=== PATIENT | male | born 1980 | race American Indian/Alaskan Native ===

== ENCOUNTER 2018-04-08 12:32 | Emergency (ER) | payer SELFPAY ==
[2018-04-08 12:48] VITALS: BP 117/73
--- NOTE | 2018-04-08 13:17 | Emergency Department Report ---
ED Fall HPI - General Chief Complaint: Fall Stated Complaint: FULL BODY PAIN Time Seen by Provider: 04/08/18 13:15 Source: patient Mode of arrival: Wheelchair - History of Present Illness Initial Comments: Patient is a 37 years old male with no significant past medical history. Patient brought to the ER for evaluation after a fall. Patient stated that he was cleaning his gutter when he slipped from the ladder and fell. Patient stated that he was found by his girlfriend. With possible loss of consciousness. Patient now is alert and oriented 3 in no acute distress. He is complaining of right lower chest pain and lower back pain. Patient is walking into the exam room with no difficulties. MD Complaint: fall -: This morning Fall From: from height (distance) When Fall Occurred: 1-3 hours [employer] Fall Witnessed: yes, by family Place Fall Occurred: work Loss of Consciousness: yes Prolonged Down Time?: no Symptoms Prior to Fall: none Location: head, chest - Related Data Allergies Allergy/AdvReac Type Severity Reaction Status Date / Time No Known Allergies Allergy Unverified 04/08/18 12:48 ED Review of Systems ROS: Stated complaint: FULL BODY PAIN Other details as noted in HPI Comment: All other systems reviewed and negative Constitutional: denies: chills, fever Respiratory: denies: cough, orthopnea, shortness of breath, SOB with exertion, SOB at rest Cardiovascular: chest pain (right lower chest pain) Gastrointestinal: denies: abdominal pain, nausea Neurological: denies: headache, weakness, numbness, paresthesias, confusion, abnormal gait ED Past Medical Hx - Past Medical History Previous Medical History?: No - Surgical History Past Surgical History?: Yes Additional Surgical History: tonsillectomy - Social History Smoking Status: Current Every Day Smoker Substance Use Type: None ED Physical Exam - General Limitations: No Limitations General appearance: alert, in no apparent distress - Head Head exam: Present: atraumatic, normocephalic, normal inspection - Eye Eye exam: Present: normal appearance, PERRL - ENT ENT exam: Present: normal exam, normal orophraynx, mucous membranes moist, normal external ear exam - Neck Neck exam: Present: normal inspection, full ROM. Absent: tenderness, meningismus, lymphadenopathy, thyromegaly - Respiratory Respiratory exam: Present: normal lung sounds bilaterally, chest wall tenderness. Absent: respiratory distress, wheezes, rales, rhonchi, stridor, accessory muscle use, decreased breath sounds, prolonged expiratory - Cardiovascular Cardiovascular Exam: Present: regular rate, normal rhythm, normal heart sounds - GI/Abdominal GI/Abdominal exam: Present: soft, normal bowel sounds. Absent: distended, tenderness, guarding, rebound, rigid, organomegaly, mass, bruit, pulsatile mass, hernia - Extremities Exam Extremities exam: Present: normal inspection, full ROM, normal capillary refill. Absent: pedal edema, calf tenderness - Back Exam Back exam: Present: normal inspection, full ROM. Absent: tenderness, CVA tenderness (R), CVA tenderness (L), muscle spasm, paraspinal tenderness, vertebral tenderness, rash noted - Neurological Exam Neurological exam: Present: alert, oriented X3, CN II-XII intact, normal gait, reflexes normal. Absent: abnormal gait, motor sensory deficit - Skin Skin exam: Present: warm, intact, normal color ED Course Vital Signs 04/08/18 04/08/18 12:44 13:40 Temperature 98.1 F Pulse Rate 74 Respiratory 18 14 Rate Blood Pressure 117/73 O2 Sat by Pulse 97 Oximetry ED Medical Decision Making - Radiology Data Radiology results: report reviewed Referring Physician: MARCY RICHARD Patient Name: CATHY ESCUDERO Date of : 1980 Sex: Male Report Date: 2018-04-08 Report Status: Finalized Findings [facility] [address] [place] [address] Cat Scan Report Signed Patient: CATHY ESCUDERO MR#: [id number] : 1980 Acct:[id number] Age/Sex: 37 / M ADM Date: 04/08/18 Loc: ED Attending Dr: Ordering Physician: KYLEE KING Date of Service: 04/08/18 Procedure(s): CT head/brain wo con Accession Number(s): [id number] cc: KYLEE KING CT HEAD WITHOUT CONTRAST: HISTORY: Loss of consciousness with fall. TECHNIQUE: Sequential 2.5mm CT images. COMPARISON: none. FINDINGS: Cerebral Parenchyma: Within normal limits. Cerebellum: Within normal limits. Brainstem: Within normal limits. Ventricles: Normal. Sella: Normal. Extra-axial spaces: Normal. Basal Cisterns: Normal. Intracranial Hemorrhage: None. Midline Shift: None. Calvarium: Normal. Sinuses: Normal. Mastoid Air Cells: Normal. Visualized Orbits: Normal. IMPRESSION: Cranial CT scan within normal limits. Transcribed By: TTR Dictated By: ANGELA MAE JR, MD Electronically Authenticated By: ANGELA MAE JR, MD Signed Date/Time: 04/08/181515 Referring Physician: MARCY RICHARD Patient Name: CATHY ESCUDERO Date of : 1980 Sex: Male Report Date: 2018-04-08 Report Status: Finalized Findings [facility] [address] [place] [address] Cat Scan Report Signed Patient: CATHY ESCUDERO MR#: [id number] : 1980 Acct:[id number] Age/Sex: 37 / M ADM Date: 04/08/18 Loc: ED Attending Dr: Ordering Physician: MARCY RICHARD Date of Service: 04/08/18 Procedure(s): CT cervical spine wo con Accession Number(s): [id number] cc: MARCY RICHARD CT SCAN OF THE CERVICAL SPINE: HISTORY: Neck pain. TECHNIQUE: Contiguous 1.25 mm axial images of the cervical spine were obtained. Sagittal and coronal reformatted images. FINDINGS: There is normal alignment of the cervical spine. The body, pedicles and posterior ligaments appear normal. No evidence of fracture or subluxation is seen. The spinal canal appears normal. The prevertebral soft tissues appear normal. IMPRESSION: Unremarkable CT of the cervical spine. No acute process is noted. Transcribed By: TTR Dictated By: ANGELA MAE JR, MD Electronically Authenticated By: ANGELA MAE JR, MD Signed Date/Time: 04/08/181515 DD/ 15 TD/TT: 04/08/181515 Referring Physician: KYLEE KING Patient Name: CATHY ESCUDERO Date of : 1980 Sex: Male Report Date: 2018-04-08 Report Status: Finalized Findings [facility] [address] [place] [address] XRay Report Signed Patient: CATHY ESCUDERO MR#: [id number] : 1980 Acct:[id number] Age/Sex: 37 / M ADM Date: 04/08/18 Loc: ED Attending Dr: Ordering Physician: KYLEE KING Date of Service: 04/08/18 Procedure(s): XR ribs UNILAT 2V RT Accession Number(s): [id number] cc: KYLEE KING Fluoro Time In Minutes: RIGHT RIBS, 3 VIEWS: History: pain. Routine views of the rib cage demonstrate normal mineralization with no significant contour abnormalities, fractures or destructive lesions. PA view of the chest demonstrates no underlying cardiopulmonary abnormalities, fluid or pneumothorax. IMPRESSION: Unremarkable right rib series. Transcribed By: TTR Dictated By: ANGELA MAE JR, MD Electronically Authenticated By: ANGELA MAE JR, MD Signed Date/Time: 04/08/18 135 DD/ 50 TD/TT: 04/08/18 135 Referring Physician: KYLEE KING Patient Name: CATHY ESCUDERO Date of : 1980 Sex: Male Report Date: 2018-04-08 Report Status: Finalized Findings [address] [address] XRay Report Signed Patient: CATHY ESCUDERO MR#: [id number] : 1980 Acct:[id number] Age/Sex: 37 / M ADM Date: 04/08/18 Loc: ED Attending Dr: Ordering Physician: KYLEE KING Date of Service: 04/08/18 Procedure(s): XR chest routine 2V Accession Number(s): [id number] cc: KYLEE KING Fluoro Time In Minutes: ROUTINE CHEST, TWO VIEWS: HISTORY: chest pain. The trachea, heart, mediastinal contour, lung dunaway and bony thorax are unremarkable. IMPRESSION: Unremarkable chest x-ray. Transcribed By: TTR Dictated By: ANGELA MAE JR, MD Electronically Authenticated By: ANGELA MAE JR, MD Signed Date/Time: 04/08/181350 DD/ 135 TD/TT: 04/08/18 135 DD/ 14 TD/TT: 04/08/181515 Critical care attestation.: If time is entered above; I have spent that time in minutes in the direct care of this critically ill patient, excluding procedure time. ED Disposition Clinical Impression: Fall, Contusion, Head injury Disposition: - TO HOME OR SELFCARE Is pt being admited?: No Condition: Stable Instructions: Minor Head Injury (ED), Contusion in Adults (ED), Fall Prevention (ED) Referrals: PRIMARY CARE, [Primary Care Provider] - 3-5 Days
--- NOTE | 2018-04-08 13:54 | XRay Report ---
ROUTINE CHEST, TWO VIEWS: HISTORY: chest pain. The trachea, heart, mediastinal contour, lung dunaway and bony thorax are unremarkable. IMPRESSION: Unremarkable chest x-ray.
--- NOTE | 2018-04-08 13:54 | XRay Report ---
RIGHT RIBS, 3 VIEWS: History: pain. Routine views of the rib cage demonstrate normal mineralization with no significant contour abnormalities, fractures or destructive lesions. PA view of the chest demonstrates no underlying cardiopulmonary abnormalities, fluid or pneumothorax. IMPRESSION: Unremarkable right rib series.
--- NOTE | 2018-04-08 15:18 | Cat Scan Report ---
CT HEAD WITHOUT CONTRAST: HISTORY: Loss of consciousness with fall. TECHNIQUE: Sequential 2.5mm CT images. COMPARISON: none. FINDINGS: Cerebral Parenchyma: Within normal limits. Cerebellum: Within normal limits. Brainstem: Within normal limits. Ventricles: Normal. Sella: Normal. Extra-axial spaces: Normal. Basal Cisterns: Normal. Intracranial Hemorrhage: None. Midline Shift: None. Calvarium: Normal. Sinuses: Normal. Mastoid Air Cells: Normal. Visualized Orbits: Normal. IMPRESSION: Cranial CT scan within normal limits.
--- NOTE | 2018-04-08 15:19 | Cat Scan Report ---
CT SCAN OF THE CERVICAL SPINE: HISTORY: Neck pain. TECHNIQUE: Contiguous 1.25 mm axial images of the cervical spine were obtained. Sagittal and coronal reformatted images. FINDINGS: There is normal alignment of the cervical spine. The body, pedicles and posterior ligaments appear normal. No evidence of fracture or subluxation is seen. The spinal canal appears normal. The prevertebral soft tissues appear normal. IMPRESSION: Unremarkable CT of the cervical spine. No acute process is noted.
== END 2018-04-08 15:58 | disposition home or self-care (01) ==
LOC: ED 12:32
DX: S00.93XA Contusion of unspecified part of head, initial encounter (principal); S30.0XXA Contusion of lower back and pelvis, initial encounter; F17.200 Nicotine dependence, unspecified, uncomplicated; Z90.89 Acquired absence of other organs; W11.XXXA Fall on and from ladder, initial encounter; Y93.89 Activity, other specified; Y92.69 Other specified industrial and construction area as the place of occurrence of the external cause; Y99.8 Other external cause status
CPT/HCPCS: 70450; 71046; 72125; 99284